=== PATIENT | female | born 1965 | race Caucasian/White ===

== ENCOUNTER → 2016-11-26 | Outpatient (CLI) | payer OTHER ==
[2016-11-26 19:08] LABS: ALT/SGPT 23 U/L (12-78); AST/SGOT 15 U/L (15-37); BLOOD UREA NITROGEN 8 mg/dl (7-18); BUN/CREATININE RATIO 8.9 (10-20); CALCIUM 8.7 mg/dl (8.5-10.1); CARBON DIOXIDE 29 mmol/L (21-32); CHLORIDE 104 mmol/L (98-107); CREATININE 0.95 mg/dl (0.60-1.20); GLUCOSE 110 mg/dl (70-99); POTASSIUM 3.8 mmol/L (3.5-5.1); SODIUM 141 mmol/L (136-145)
== END | disposition home or self-care (01) ==
LOC: C.LABMFLN 08:34
PROVIDERS: ATTEND Internal Medicine
DX: E03.9 Hypothyroidism, unspecified (principal); E78.5 Hyperlipidemia, unspecified; R73.9 Hyperglycemia, unspecified

== ENCOUNTER → 2017-03-10 | Outpatient (CLI) | payer OTHER ==
--- NOTE | 2017-03-11 13:08 | MAMMOGRAPHY REPORT ---
BILATERAL DIGITAL SCREENING MAMMOGRAM TOMOSYNTHESIS WITH CAD: 03/10/2017 CLINICAL HISTORY: Routine screening. TECHNIQUE: Breast tomosynthesis in addition to standard 2D mammography was performed. Current study was also evaluated with a Computer Aided Detection (CAD) system. COMPARISON: Comparison is made to exams dated: 03/17/2013 mammogram, 03/21/2014 mammogram, 10/09/2011 mammogram, 10/08/2010 mammogram - [facility], 12/22/2007, and 10/15/2007. BREAST COMPOSITION: The tissue of both breasts is heterogeneously dense, which may obscure small ma sses. FINDINGS: The parenchyma pattern is similar to prior exams. No new suspicious mass, architectural distortion or cluster of microcalcifications is seen. IMPRESSION: ACR BI-RADS CATEGORY 1: NEGATIVE There is no mammographic evidence of malignancy. A 1 year screening mammogram is recommended. The p atient will receive written notification of the results. Approximately 10% of breast cancers are not detected with mammography. A negative mammographic repor t should not delay biopsy if a clinically suggestive mass is present. Pam Goldstein M.D. ay/:03/10/2017 17:11:42 Application Assistant: Harshil RODRIGES(Raj)(Criselda), [facility] letter sent: Normal 1/2 BI-RADS Code: ACR BI-RADS Category 1: Negative
== END | disposition home or self-care (01) ==
LOC: C.MAMM 13:51
PROVIDERS: ATTEND Obstetrics & Gynecology
DX: Z12.31 Encounter for screening mammogram for malignant neoplasm of breast (principal)

== ENCOUNTER → 2017-06-11 | Outpatient (CLI) | payer OTHER ==
[2017-06-11 13:26] LABS: BLOOD UREA NITROGEN 7 mg/dl (7-18); BUN/CREATININE RATIO 8.5 (10-20); CARBON DIOXIDE 30 mmol/L (21-32); CHLORIDE 107 mmol/L (98-107); CREATININE 0.87 mg/dl (0.60-1.20); GLUCOSE 94 mg/dl (70-99); POTASSIUM 3.7 mmol/L (3.5-5.1); SODIUM 140 mmol/L (136-145)
[2017-06-11 13:27] LABS: ESTIMATED AVERAGE GLUCOSE 108 mg/dl; HA1C FLAG Normal (Normal)
[2017-06-11 13:36] LABS: CHOLESTEROL 209 mg/dl (0-200); CHOLESTEROL/HDL RATIO 3.7; HDL CHOLESTEROL 56 mg/dl; LDL CHOLESTEROL CALCULATED 132 mg/dl; TRIGLYCERIDES 103 mg/dl (0-150); VERY LOW DENSITY LIPOPROT CALC 21 mg/dl
== END | disposition home or self-care (01) ==
LOC: C.LABMFLN 08:14
PROVIDERS: ATTEND Internal Medicine
DX: E03.9 Hypothyroidism, unspecified (principal); R73.9 Hyperglycemia, unspecified; E78.5 Hyperlipidemia, unspecified

== ENCOUNTER → 2017-12-16 | Outpatient (CLI) | payer OTHER ==
[2017-12-16 18:11] LABS: BASO % 0.4 %; BASO ABS # 0.03 K/uL (0-0.2); EOS % 2.5 %; EOS ABS # 0.21 K/uL (0-0.5); HEMATOCRIT 43.4 % (37-47); HEMOGLOBIN 14.4 g/dL (12.0-16.0); IG# 0.01 K/uL (0.00-0.02); LYMPH % 23.3 %; LYMPH ABS # 1.98 K/uL (1.2-3.4); MEAN CELL VOLUME 91.2 fL (80-100); MEAN CORPUSCULAR HEMOGLOBIN 30.3 pg (25-34); MEAN CORPUSCULAR HGB CONC 33.2 g/dl (32-36); MEAN PLATELET VOLUME 10.6 fL (7.4-10.4); MONO % 7.8 %; MONO ABS # 0.66 K/uL (0.11-0.59); NEUT % 65.9 %; PLATELET COUNT 259 K/uL (130-400); RED CELL DISTRIBUTION WIDTH CV 13.3 % (11.5-14.5); RED CELL DISTRIBUTION WIDTH SD 43.9 fL (36.4-46.3); WHITE BLOOD COUNT 8.49 K/uL (4.8-10.8)
== END | disposition home or self-care (01) ==
LOC: C.LABMFLN 15:34
PROVIDERS: ATTEND Internal Medicine
DX: E03.9 Hypothyroidism, unspecified (principal); R63.5 Abnormal weight gain

== ENCOUNTER → 2018-01-29 | Outpatient (CLI) | payer OTHER | END | disposition home or self-care (01) | LOC: C.LAB 16:24 | PROVIDERS: ATTEND Obstetrics & Gynecology | DX: Z00.00 Encounter for general adult medical examination without abnormal findings (principal) ==

== ENCOUNTER 2019-05-10 08:36 | Observation (INO) ==
[2019-05-10] MEDS ORDERED: SODIUM CHLORIDE 0.9% 1000ML 1,000 ML IV SCH (09:00)
[2019-05-10 09:35] LABS: Basophils # (auto) 0.04 K/uL (0-0.2); Basophils % (auto) 0.6 %; Eosinophils # (auto) 0.06 K/uL (0-0.5); Eosinophils % (auto) 0.9 %; Hematocrit (blood only) 43.2 % (37-47); Hemoglobin 14.7 g/dL (12.0-16.0); Immature Granulocytes # (auto) 0.02 K/uL (0.00-0.02); Immature Granulocytes % (auto) 0.3 %; Lymphocytes # (auto) 0.95 K/uL (1.2-3.4); Lymphocytes % (auto) 13.7 %; Mean Corpuscular Volume 91.1 fL (80-100); Mean Platelet Volume 10.6 fL (7.4-10.4); Monocytes # (auto) 0.81 K/uL (0.11-0.59); Monocytes % (auto) 11.7 %; Neutrophils # (auto) 5.03 K/uL (1.4-6.5); Neutrophils % (auto) 72.8 %; Platelet Count 193 K/uL (130-400); RDW Coefficient of Variation 13.7 % (11.5-14.5); RDW Standard Deviation 45.9 fL (36.4-46.3); Red Blood Count 4.74 M/uL (4.2-5.4); White Blood Count 6.91 K/uL (4.8-10.8)
[2019-05-10 09:54] LABS: Albumin Level 4.2 gm/dl (3.4-5.0); BUN Creatinine Ratio 10.7 (10-20); Calcium 8.7 mg/dl (8.5-10.1); Creatinine Clr Calc Pharmacy 54.7 ml/min; Est GFR (African American) 79.8; Est GFR (Non-African American) 68.9; Potassium 3.6 mmol/L (3.5-5.1)
[2019-05-10 09:56] LABS: Albumin Globulin Ratio 1.1 (0.9-2); Bilirubin,Total 0.4 mg/dl (0.2-1); Globulin 3.7 gm/dl (2.5-4.0); Total Protein 7.9 gm/dl (6.4-8.2)
--- NOTE | 2019-05-10 10:11 | Ultrasound Report ---
ABDOMINAL ULTRASOUND, RIGHT UPPER QUADRANT HISTORY: RUQ abd pain. COMPARISON: None. FINDINGS: Pancreas: The pancreas demonstrates a normal echotexture. Liver: Unremarkable. Gallbladder: No gallbladder wall thickening. No gallstones. CBD: 8 mm. Right kidney: No hydronephrosis. IMPRESSION: 1. Dilated common bile duct measuring 8 mm. 2. Normal gallbladder. No gallstones. Electronically signed by: Joseph Allison M.D. 05/10/2019 10:09 AM
[2019-05-10] MEDS ORDERED: IOVERSOL 100ml IV PRN (12:38)
[2019-05-10 12:48] LABS: Appearance Urine Clear (Clear); Bacteria Urine Automated Negative (Negative); Bilirubin Urine Negative (Negative); Blood Urine Trace (Negative); Cast Urine Automated 0 /lpf (0-5); Color Urine Yellow; Glucose Urine UA Negative (Negative); Ketones Urine Negative (Negative); Leukocyte Esterase Urine Negative (Negative); Nitrite Urine Negative (Negative); Protein Urine Negative (Negative); RBC Urine Automated 0-4 /hpf (0-4); Urobilinogen Urine Negative (Negative); pH Urine 5.5 (4.5-7.5)
--- NOTE | 2019-05-10 12:55 | CT Scan Report ---
CT abd pelvis IV con only CT DOSE: 378.25 mGycm HISTORY: Pain. Nausea. epigastric abd pain, bloating, TECHNIQUE: Multiaxial CT images of the abdomen and pelvis were performed following the use of intrave nous contrast. A dose lowering technique was utilized adhering to the principles of ALARA. COMPARISON STUDY: None. FINDINGS: The lung bases are clear. The liver is uniform. There is a 5 mm right hepatic lobe cyst. Spleen and pancreas are unremarkable. Kidneys enhance uniformly. No evidence for hydronephrosis. Bowel pattern is consistent with that of a nonobstructive ileus. The appendix is slightly prominent a t 7.5 mm with a trace amount of periappendiceal change. No evidence for a drainable abscess or collec tion. Bladder is midline. There is no significant abdominal pelvic or inguinal adenopathy. There is no free fluid within the pelvic cul-de-sac. IMPRESSION: 1. This scan is consistent with low-grade acute appendicitis. 2. No evidence for abscess collection or obstruction. 3. Mild nonobstructive small bowel ileus. The above report was generated using voice recognition software. It may contain grammatical, syntax or spelling errors. Electronically signed by: Matthew Dobbins M.D. 05/10/2019 12:53 PM
--- NOTE | 2019-05-10 13:47 | Surgery Consultation ---
Date of Consultation May 10, 2019 Assessment & Plan (1) Acute appendicitis: pt is a 53 year -old female who presents to Er with 3 days history abdominal pain, CT scan- acute appendicitis, IMP: acute appendicitis, Plan: I recommend to do laparoscopic appendectomy, possible open , D/W benefits, risks and alternatives of the surgery, the risks - infection, bleeding, injury Bowel, OR, DVt, stroke, , pt understood, she agrees with the surgery, I answered all questions, History of Present Illness History of Present Illness CC: abdominal pain HPI: pt is a 53 year -old female who presents to ER with 3 days history abdominal pain , bloating with nausea and diarrhea, the pain is located at kallie- umbilical area, pt denies vomiting, no chest pain, pt had CT scan Dx acute appendicitis, Allergies Allergy/AdvReac Type Severity Reaction Status Date / Time No Known Allergies Allergy Unverified 05/10/19 08:57 Home Medications Home Medications Medication Instructions Recorded Confirmed Type hydrocodone-acetaminophen 1 tab PO Q12H PRN 05/10/19 05/10/19 History levothyroxine 88 mcg PO QAM 05/10/19 05/10/19 History zolmitriptan 5 mg PO DIRECTED PRN 05/10/19 05/10/19 History zolpidem 5 - 7.5 mg PO HS PRN 05/10/19 05/10/19 History Patient History Medical History Acute appendicitis (Acute) Diverticulitis Surgical History [facility] Social History Feels Safe at Home: Yes Smoking Status: Former smoker Review of Systems Constitutional: as per Subjective / HPI Ear, Nose, Mouth, Throat: as per Subjective / HPI Respiratory: as per Subjective / HPI Cardiovascular: as per Subjective / HPI Gastrointestinal: as per Subjective / HPI S/P resection rectal polyp, last colonoscopy 2018 Genitourinary: as per Subjective / HPI renal stone Integumentary: as per Subjective / HPI Neurologic: as per Subjective / HPI Psychiatric: as per Subjective / HPI Endocrine: as per Subjective / HPI Hematologic / Lymphatic: as per Subjective / HPI Physical Exam Constitutional: WD/WN, vitals as above well developed and well nourished ENMT: external ear and nose normal, oropharynx normal Neck: trachea midline, no thyromegaly trachea midline Respiratory: normal respiratory effort, lungs clear to auscultation normal respiratory effort Cardiovascular: RRR, no murmur, no edema Rate/Rhythm: regular rate and regular rhythm Heart Sounds: normal S2 Gastrointestinal (Abdomen): normal bowel sounds, soft, nontender, no hepatosplenomegaly soft, slight tenderness at RLQ, no rebound pain, BS + Musculoskeletal: no cyanosis or clubbing, extremities motor strength 5/5 Neurologic: patellar DTR's 2+ bilat, sensation intact Psychiatric: A+Ox3, euthymic affect Orientation: alert and oriented x 3 Results & Data Vital Signs (Past 12 Hours) Vital Signs Temp Pulse Pulse Resp BP BP Pulse Ox 05/10/19 12:00 86 16 126/80 99 05/10/19 10:37 84 16 123/74 99 05/10/19 08:54 99 05/10/19 08:43 36.8 C 98 H 20 143/90 H 100 Laboratory Results Abnormal lab results 05/10/19 05/10/19 05/10/19 Range/Units 09:20 09:20 12:30 MPV 10.6 H (7.4-10.4) fL Lymph # (Auto) 0.95 L (1.2-3.4) K/uL [place] # (Auto) 0.81 H (0.11-0.59) K/uL Glucose 105 H (70-99) mg/dl Urine Blood Trace H (Negative) U Epithel Cells (Auto) 5-10 H (0-5) /lpf CT abd pelvis IV con only CT DOSE: 378.25 mGycm HISTORY: Pain. Nausea. epigastric abd pain, bloating, TECHNIQUE: Multiaxial CT images of the abdomen and pelvis were performed following the use of intravenous contrast. A dose lowering technique was utilized adhering to the principles of ALARA. COMPARISON STUDY: None. FINDINGS: The lung bases are clear. The liver is uniform. There is a 5 mm right hepatic lobe cyst. Spleen and pancreas are unremarkable. Kidneys enhance uniformly. No evidence for hydronephrosis. Bowel pattern is consistent with that of a nonobstructive ileus. The appendix is slightly prominent at 7.5 mm with a trace amount of periappendiceal change. No evidence for a drainable abscess or collection. Bladder is midline. There is no significant abdominal pelvic or inguinal adenopathy. There is no free fluid within the pelvic cul-de-sac. IMPRESSION: 1. This scan is consistent with low-grade acute appendicitis. 2. No evidence for abscess collection or obstruction. 3. Mild nonobstructive small bowel ileus. (1) Acute appendicitis Acute appendicitis type: unspecified acute appendicitis type Qualified Code(s): K35.80 - Unspecified acute appendicitis
--- NOTE | 2019-05-10 13:51 | History & Physical Bridge Note ---
Date of Service May 10, 2019 History & Physical Bridge Note I have examined the patient, reviewed the History & Physical and in the interval since the performance of the History & Physical I have noted the following changes of clinical significance: no changes noted
[2019-05-10] MEDS ORDERED: cefOXitin 2,000 MG in DEXTROSE 5% 50 ML IV ONE (14:00)
[2019-05-10] MEDS ORDERED: LIDOCAINE HCL 2% 2 ML VIAL/AMP(20MG/ML) INFIL ONE (14:02)
[2019-05-10] MEDS ORDERED: fentaNYL citrate 100 MCG/2 ML VIAL ONE ×2 (14:02)
[2019-05-10] MEDS ORDERED: SUCCINYLCHOLINE CHLORIDE 20 MG/ML 10 ML VIAL ONE (14:02)
[2019-05-10] MEDS ORDERED: DEXAMETHASONE SOD INJ 4 MG/ML VIAL ONE (14:02)
[2019-05-10] MEDS ORDERED: MIDAZOLAM HCL 1 MG/ML 2ML VIAL ONE (14:02)
[2019-05-10] MEDS ORDERED: ONDANSETRON INJ 2 MG/ML 2 ML VIAL ONE (14:02)
[2019-05-10] MEDS ORDERED: PROPOFOL IV EMULSION 10 MG/ML 20 ML VIAL IV ONE (14:02)
[2019-05-10] MEDS ORDERED: ROCURONIUM BROMIDE 10 MG/ML 5 ML VIAL ONE (14:02)
[2019-05-10] MEDS ORDERED: ePHEDrine sulfate 50 MG/ML AMP IV PRN (14:13)
[2019-05-10] MEDS ORDERED: ONDANSETRON INJ 2 MG/ML 2 ML VIAL IV PRN ×2 (14:13→15:48)
[2019-05-10] MEDS ORDERED: ATROPINE SULFATE 0.1 MG/ML 10ML SYR IV PRN (14:13)
--- NOTE | 2019-05-10 14:19 | Anesthesiology Consultation ---
Date of Service May 10, 2019 Assessment & Plan (1) Encounter for pre-operative examination: Chart Review Chart Review: Acceptable Risk for Surgery and Patient NOT seen in Pre Admission Testing Consults Requested none History Surgery Operation Date: 05/10/19 14:20 Proposed Procedures p Laparoscopic Appendectomy - Jeff Pérez MD Height/Weight Height: 5 ft Weight: 56.7 kg Allergies Allergy/AdvReac Type Severity Reaction Status Date / Time No Known Allergies Allergy Unverified 05/10/19 08:57 Medications Home Medications Medication Instructions Recorded Confirmed Last Taken hydrocodone-acetaminophen 1 tab PO Q12H PRN 05/10/19 05/10/19 05/06/19 levothyroxine 88 mcg PO QAM 05/10/19 05/10/19 05/10/19 zolmitriptan 5 mg PO DIRECTED PRN 05/10/19 05/10/19 05/09/19 zolpidem 5 - 7.5 mg PO HS PRN 05/10/19 05/10/19 05/09/19 Active Medications Generic Name Dose Route Start Last Admin Trade Name Freq PRN Reason Stop Dose Admin Sodium Chloride 1,000 mls @ 150 mls/hr 05/10/19 09:00 05/10/19 09:41 Nss 1000ml IV 05/10/19 15:39 150 mls/hr .Q6H40M LAUREN Administration Ioversol 94 ml 05/10/19 12:38 05/10/19 12:39 Optiray 320 100ml IV 05/14/19 12:37 94 ml ONCE PRN Administration Interaction Checking Past Medical History Medical History Acute appendicitis (Acute) Diverticulitis Exercise / Class Metabolic Activity II 4-5 Yardwork/Stairs/Walk up hill Past Surgical History Surgical History History of rectal surgery Adenoma vellosa Social History Smoking Status: Former smoker Do You Dip or Chew Tobacco: No Hx Alcohol Use: No Hx Substance Use: No Physical Exam Vital Signs Last Vital Signs Temp 36.8 C 05/10/19 08:43 Pulse 86 05/10/19 12:00 Resp 16 05/10/19 12:00 BP 126/80 05/10/19 12:00 Pulse Ox 99 05/10/19 12:00 Testing Laboratory Results 05/10/19 09:20 05/10/19 09:20 Urine Color Yellow 05/10/19 12:30 Urine Appearance Clear (Clear) 05/10/19 12:30 Urine pH 5.5 (4.5-7.5) 05/10/19 12:30 Ur Specific [place] 1.010 (1.000-1.030) 05/10/19 12:30 Urine Protein Negative (Negative) 05/10/19 12:30 Urine Glucose (UA) Negative (Negative) 05/10/19 12:30 Urine Ketones Negative (Negative) 05/10/19 12:30 Urine Nitrite Negative (Negative) 05/10/19 12:30 Ur Leukocyte Esterase Negative (Negative) 05/10/19 12:30 Urine WBC (Auto) 1-5 /hpf (0-5) 05/10/19 12:30 Urine RBC (Auto) 0-4 /hpf (0-4) 05/10/19 12:30 U Hyaline Cast (Auto) 0 /lpf (0-5) 05/10/19 12:30 U Epithel Cells (Auto) 5-10 /lpf (0-5) H 05/10/19 12:30 Urine Bacteria (Auto) Negative (Negative) 05/10/19 12:30
[2019-05-10] MEDS ORDERED: LIDOCAINE HCL 1% 20 ML VIAL ONE (14:32)
[2019-05-10] MEDS ORDERED: BUPIVACAINE 0.5 % 5 MG/1 ML MPF 30ML VIAL ONE (14:32)
[2019-05-10] MEDS ORDERED: BACITRACIN OINT 15 GM TUBE ONE (14:32)
[2019-05-10] MEDS ORDERED: ACETAMINOPHEN 1000 MG/100 ML IV IV ONE (14:35)
--- NOTE | 2019-05-10 15:32 | Emergency Department Note ---
Entered by Charlotte Villareal acting as a scribe for Precious Fernandez MD History of Present Illness General Chief complaint: Constipation Stated complaint: OBSTRUCTION, BLOATING Source: patient Mode of arrival: ambulatory Limitations: no limitations History of Present Illness Provider complaint: constipation Onset (ago): week(s) 1 Location: abdomen Pain Consistency: + other (episode) Quality: + other (constipation) Relieved By: not by other (tea) Associated symptoms: + loss of appetite and + nausea/vomiting Treatments prior to arrival: other (tea) The patient is a 53 year old female who presents to the ER with complaints of an episode of constipation that began about a week ago. The patient explains that she has been camping and overeating for the past week and believes this could be related. She reports that her last bowel movement was over a week ago. She states that on Friday she developed upper abdominal discomfort. She notes she has been nauseous and experiencing a loss of appetite but denies any vomiting. She reports that she drank a cleansing tea last night and explains usually help but that has caused her to have diarrhea. She denies any urinary symptoms. She also denies any previous abdominal surgeries but explains she does have diverticulitis. Home Medications Home Medications Medication Instructions Recorded Confirmed Type hydrocodone-acetaminophen 1 tab PO Q12H PRN 05/10/19 05/10/19 History levothyroxine 88 mcg PO QAM 05/10/19 05/10/19 History zolmitriptan 5 mg PO DIRECTED PRN 05/10/19 05/10/19 History zolpidem 5 - 7.5 mg PO HS PRN 05/10/19 05/10/19 History Allergies Allergy/AdvReac Type Severity Reaction Status Date / Time No Known Allergies Allergy Unverified 05/10/19 08:57 Past Med/Surg History Medical History Acute appendicitis (Acute) Diverticulitis Surgical History History of rectal surgery Adenoma vellosa Social History Feels Safe at Home: Yes Smoking Status: Former smoker Do You Dip or Chew Tobacco: No Hx Alcohol Use: No Hx Substance Use: No Review of Systems See HPI for pertinent positives & negatives. and A total of 10 systems reviewed and were otherwise negative Physical Exam Vital Signs Vital Signs - 24 hr 05/10/19 08:43 05/10/19 08:54 05/10/19 10:37 Temperature 36.8 C Temperature Source Oral Sepsis Recent Fever Within 48 Hours No Sepsis Action Taken by Nursing No Action Required Pulse Rate 98 H Pulse Rate [Apical] 84 Pulse Rate [Finger] Pulse Rhythm [Finger] Pulse Strength [Finger] Respiratory Rate 20 16 Respiratory Effort / Characteristics Non-Labored Respiratory Depth Normal Respiratory Pattern Blood Pressure 143/90 H Blood Pressure [Left Arm] 123/74 Blood Pressure Mean 107 Blood Pressure Mean [Left Arm] 90 Blood Pressure Position [Left Arm] Pulse Oximetry 100 99 99 Oxygen Delivery Method Room Air Room Air Room Air 05/10/19 12:00 05/10/19 14:12 Temperature 36.8 C Temperature Source Oral Sepsis Recent Fever Within 48 Hours Sepsis Action Taken by Nursing Pulse Rate Pulse Rate [Apical] 86 Pulse Rate [Finger] 84 Pulse Rhythm [Finger] Regular Pulse Strength [Finger] Normal Respiratory Rate 16 18 Respiratory Effort / Characteristics Non-Labored Spontaneous Respiratory Depth Normal Respiratory Pattern Regular Blood Pressure Blood Pressure [Left Arm] 126/80 142/87 H Blood Pressure Mean Blood Pressure Mean [Left Arm] 95 105 Blood Pressure Position [Left Arm] Sitting Pulse Oximetry 99 98 Oxygen Delivery Method Room Air Room Air Vital signs reviewed. General: Well-appearing, in no significant distress. HEENT: No scleral icterus, PERRLA, neck supple. Atraumatic. Cardiovascular: Regular rate and rhythm, no extra sounds. Pulmonary: Clear to auscultation bilaterally, normal work of breathing. Abdomen: Soft, positive bowel sounds. Mild abdominal distention/lower abdominal tenderness. No rebound or guarding. Musculoskeletal: Atraumatic, no peripheral edema. Neurologic: Patient awake alert and oriented x 3. Skin: Warm, dry, no rash Course 0850: Past medical records reviewed. The patient was evaluated in room A3. A complete history and physical examination was performed. 1311: I discussed the patients case with Dr. Pérez General Surgery. He will evaluate the patient for further management. 1315: I updated the patient. Administered Medications Ioversol (Optiray 320 100ml) 94 ml IV ONCE PRN PRN Reason: Interaction Checking Stop: 05/14/19 12:37 Last Admin: 05/10/19 12:39 Dose: 94 ml Documented by: [id number] Discontinued Medications Bacitracin (Bacitracin) Confirm Administered Dose 45 appln .ROUTE .STK-MED ONE Stop: 05/10/19 14:33 Last Admin: 05/10/19 15:40 Dose: 45 appln Documented by: [id number] Bupivacaine HCl (Marcaine 0.5% Mpf) Confirm Administered Dose 30 ml .ROUTE .STK- MED ONE Stop: 05/10/19 14:33 Last Admin: 05/10/19 15:40 Dose: 18 ml Documented by: [id number] Sodium Chloride (Nss 1000ml) 1,000 mls @ 150 mls/hr IV .Q6H40M LAUREN Stop: 05/10/19 15:39 Last Admin: 05/10/19 09:41 Dose: 150 mls/hr Documented by: [id number] Cefoxitin Sodium 2,000 mg/ (Dextrose) 60 mls @ 100 mls/hr IV NOW ONE Stop: 05/10/19 14:35 Last Admin: 05/10/19 14:41 Dose: 100 mls/hr Documented by: [id number] Lidocaine HCl (Xylocaine 1% (Local)) Confirm Administered Dose 20 ml .ROUTE .ST-MED ONE Stop: 05/10/19 14:33 Last Admin: 05/10/19 15:41 Dose: 18 ml Documented by: [id number] Medical Decision Making Differential Diagnosis Differential diagnosis includes: gastritis, peptic ulcer disease, GERD, gallbladder disease, pancreatitis, small bowel obstruction, acute coronary syndrome, pericarditis, ischemic bowel, irritable bowel disease, irritable bowel syndrome, appendicitis, diverticulitis, malignancy, hernia, urinary tract infection, torsion, perforation, trauma, and infectious. Medical Records Attestation: I reviewed the patient's medical records. Home Medications Current Medication List: was personally reviewed by me Laboratory Data Attestation: I reviewed the patient's lab results. Result diagrams: 05/10/19 09:20 05/10/19 09:20 Lab Results 05/10/19 05/10/19 05/10/19 Range/Units 09:20 09:20 12:30 WBC 6.91 (4.8-10.8) K/uL RBC 4.74 (4.2-5.4) M/uL Hgb 14.7 (12.0-16.0) g/dL Hct 43.2 (37-47) % MCV 91.1 (80-100) fL MCH 31.0 (25-34) pg MCHC 34.0 (32-36) g/dL RDW Std Deviation 45.9 (36.4-46.3) fL RDW Coeff of Jairon 13.7 (11.5-14.5) % Plt Count 193 (130-400) K/uL MPV 10.6 H (7.4-10.4) fL Immature Gran % (Auto) 0.3 % Neut % (Auto) 72.8 % Lymph % (Auto) 13.7 % [place] % (Auto) 11.7 % Eos % (Auto) 0.9 % Baso % (Auto) 0.6 % Immature Gran # (Auto) 0.02 (0.00-0.02) K/uL Neut # (Auto) 5.03 (1.4-6.5) K/uL Lymph # (Auto) 0.95 L (1.2-3.4) K/uL [place] # (Auto) 0.81 H (0.11-0.59) K/uL Eos # (Auto) 0.06 (0-0.5) K/uL Baso # (Auto) 0.04 (0-0.2) K/uL Sodium 136 (136-145) mmol/L Potassium 3.6 (3.5-5.1) mmol/L Chloride 103 (98-107) mmol/L Carbon Dioxide 29 (21-32) mmol/L Anion Gap 4.0 (3-11) BUN 10 (7-18) mg/dl Creatinine 0.95 (0.6-1.2) mg/dl Est Cr Clr Drug Dosing 54.7 ml/min Est GFR ( Amer) 79.8 Est GFR (Non-Af Amer) 68.9 BUN/Creatinine Ratio 10.7 (10-20) Glucose 105 H (70-99) mg/dl Calcium 8.7 (8.5-10.1) mg/dl Total Bilirubin 0.4 (0.2-1) mg/dl AST 20 (15-37) U/L ALT 19 (12-78) U/L Alkaline Phosphatase 86 (45-117) U/L Total Protein 7.9 (6.4-8.2) gm/dl Albumin 4.2 (3.4-5.0) gm/dl Globulin 3.7 (2.5-4.0) gm/dl Albumin/Globulin Ratio 1.1 (0.9-2) Lipase 86 (73-393) U/L Urine Color Yellow Urine Appearance Clear (Clear) Urine pH 5.5 (4.5-7.5) Ur Specific [place] 1.010 (1.000-1.030) Urine Protein Negative (Negative) Urine Glucose (UA) Negative (Negative) Urine Ketones Negative (Negative) Urine Blood Trace H (Negative) Urine Nitrite Negative (Negative) Urine Bilirubin Negative (Negative) Urine Urobilinogen Negative (Negative) Ur Leukocyte Esterase Negative (Negative) Urine WBC (Auto) 1-5 (0-5) /hpf Urine RBC (Auto) 0-4 (0-4) /hpf U Hyaline Cast (Auto) 0 (0-5) /lpf U Epithel Cells (Auto) 5-10 H (0-5) /lpf Urine Bacteria (Auto) Negative (Negative) Imaging Data Radiologist's Impression: Radiology results as stated below per my review and t he radiologist's interpretation: ABDOMINAL ULTRASOUND, RIGHT UPPER QUADRANT HISTORY: RUQ abd pain. COMPARISON: None. FINDINGS: Pancreas: The pancreas demonstrates a normal echotexture. Liver: Unremarkable. Gallbladder: No gallbladder wall thickening. No gallstones. CBD: 8 mm. Right kidney: No hydronephrosis. IMPRESSION: 1. Dilated common bile duct measuring 8 mm. 2. Normal gallbladder. No gallstones. Electronically signed by: Joseph Allison M.D. 05/10/2019 10:[address] abd pelvis IV con only CT DOSE: 378.25 mGycm HISTORY: Pain. Nausea. epigastric abd pain, bloating, TECHNIQUE: Multiaxial CT images of the abdomen and pelvis were performed following the use of intravenous contrast. A dose lowering technique was utilized adhering to the principles of ALARA. COMPARISON STUDY: None. FINDINGS: The lung bases are clear. The liver is uniform. There is a 5 mm right hepatic lobe cyst. Spleen and pancreas are unremarkable. Kidneys enhance uniformly. No evidence for hydronephrosis. Bowel pattern is consistent with that of a nonobstructive ileus. The appendix is slightly prominent at 7.5 mm with a trace amount of periappendiceal change. No evidence for a drainable abscess or collection. Bladder is midline. There is no significant abdominal pelvic or inguinal adenopathy. There is no free fluid within the pelvic cul-de-sac. IMPRESSION: 1. This scan is consistent with low-grade acute appendicitis. 2. No evidence for abscess collection or obstruction. 3. Mild nonobstructive small bowel ileus. The above report was generated using voice recognition software. It may contain grammatical, syntax or spelling errors. Electronically signed by: Matthew Dobbins M.D. 05/10/2019 12:53 PM Blood Pressure Blood Pressure Findings: Normal blood pressure Blood Pressure Disposition: did not require urgent referral MDM Narrative This patient was evaluated and appeared to be in no significant distress. IV access was obtained and laboratory work was drawn. Patient was placed on the groundwater monitoring technician. IV fluids were initiated. Patient declined the need for any pain or nausea medications. Laboratory work reveals a normal WBC. Ultrasound the right upper quadrant is significant for a slightly dilated common bile duct but no evidence of acute cholecystitis or gallstone. CT imaging reveals a mild appendicitis. Case was discussed with Dr. Pérez of general surgery. He agreed to evaluate the patient in the ED for further management. Patient was made aw are of the findings and plan and agrees. Impression & Plan Acute appendicitis Discharge Plan Visit Data *Final* Discharge Date/Time: 05/10/19 14:20 Chief Complaint: Constipation Stated Complaint: OBSTRUCTION, BLOATING ED Provider: Precious Fernandez Discharge Problem: Acute appendicitis Patient Disposition: Still a Patient Discharge Instructions Interventions: ED Discharge Assessment Last Done: 05/10/19 13:55 Discharge Problem: Acute appendicitis Qualifiers: Acute appendicitis type: unspecified acute appendicitis type Qualified Code(s): K35.80 - Unspecified acute appendicitis The scribe's documentation has been prepared under my direction and personally reviewed by me in its entirety. I confirm that the note above accurately reflects all work, treatment, procedures, and medical decision making performed by me.
[2019-05-10] MEDS ORDERED: NEOSTIGMINE METHYLSULFATE 5 MG/5 ML SYR ONE (15:34)
[2019-05-10] MEDS ORDERED: GLYCOPYRROLATE 0.2 MG/ML VIAL ONE (15:34)
[2019-05-10] MEDS ORDERED: KETOROLAC 30 MG/ML VIAL ONE (15:34)
--- NOTE | 2019-05-10 15:44 | Post Operative Brief Note ---
Immediate Post Op Note v1 Date of Surgery May 10, 2019 Pre & Post Diagnosis Operation Date: 05/10/19 14:20 Pre-Op Diagnosis: Acute appendicitis. Post-Op Diagnosis: Acute appendicitis. Procedure Operation Date: 05/10/19 14:20 Actual Procedures p Laparoscopic Appendectomy(Not Applicable) - Jeff Pérez MD Surgeon Jeff Pérez MD Sign Language Teacher engineering technician Estimated Blood Loss 10 Findings Consistent with Post-Op Diagnosis acute appendicitis Fluids 800ml Specimens appendix Drains Sharpe Catheter Anesthesia Type General Complications none Disposition Accompanied Patient To Recovery: Yes Disposition: Recovery Room Overlapping Procedure I was immediately available: during the entire case.
[2019-05-10] MEDS ORDERED: OXYCODONE/ACETAMINOPHEN 5mg/325mg TAB PO PRN (15:50)
[2019-05-10] MEDS: fentaNYL citrate 100 MCG/2 ML VIAL IV PRN ×4 (16:12→16:32)
--- NOTE | 2019-05-10 16:13 | Anesthesiology Progress Note ---
Date of Service May 10, 2019 Anesthesia Post Procedure Vital Signs Vital Signs: Temp Pulse Pulse Pulse Resp BP BP 05/10/19 16:00 80 13 136/78 05/10/19 15:52 36.5 C 91 H 18 142/95 H 05/10/19 14:12 36.8 C 84 18 142/87 H 05/10/19 12:00 86 16 126/80 05/10/19 10:37 84 16 123/74 05/10/19 08:54 05/10/19 08:43 36.8 C 98 H 20 143/90 H Pulse Ox 05/10/19 16:00 99 05/10/19 15:52 98 05/10/19 14:12 98 05/10/19 12:00 99 05/10/19 10:37 99 05/10/19 08:54 99 05/10/19 08:43 100 Pain Intensity Medial Abdomen: Pain Intensity: 0 Transfer of Care Handoff Completed per policy Notes Mental Status: alert / awake / arousable and participated in evaluation Patient Amnestic to Procedure: Yes Nausea / Vomiting: adequately controlled Pain: adequately controlled Airway Patency, RR, SpO2: stable & adequate BP & HR: stable & adequate Hydration State: stable & adequate Anesthetic Complications: no major complications apparent and Pt Satisfied with anesthetic care
[2019-05-10] MEDS: HYDROmorphone INJ 1 MG/ML SYRINGE IV PRN ×5 (16:41→17:14)
[2019-05-10] MEDS ORDERED: ZOLPIDEM TARTRATE 5 MG TAB PO PRN (17:44)
[2019-05-10] MEDS ORDERED: HYDROCODONE/ACETAMOPHEN 5/325MG TAB PO PRN (17:44)
[2019-05-10] MEDS: HYDROmorphone INJ 0.5 MG/0.5 ML SYR IV PRN ×2 (18:02→21:16)
[2019-05-10] MEDS: LACTATED RINGER'S 1,000 ML IV SCH (18:27)
--- NOTE | 2019-05-11 01:55 | Operative Report ---
DATE OF OPERATION: 05/10/2019 PREOPERATIVE DIAGNOSIS: Acute appendicitis. POSTOPERATIVE DIAGNOSIS: Acute appendicitis. PROCEDURE: Laparoscopic appendectomy. SURGEON: Jeff Pérez MD. ANESTHESIA: General. ESTIMATED BLOOD LOSS: About 10 mL. FINDINGS: Acute appendicitis. COMPLICATIONS: None. INDICATIONS FOR THE PROCEDURE: This is a 53-year-old female who presented to ED with 3 days history of abdominal pain. The patient had a CT scan diagnosis of acute appendicitis. I recommended to do laparoscopic appendectomy, possible open. I did talk to the patient about the benefit and risk, alternative of procedure. I indicated the risks may include but not limited such as bleeding, infection, injury to the bowel, myocardial infarction, DVT, even . The patient understands. She signed informed consent and I answered all questions. DETAILS OF PROCEDURE: We brought the patient to the OR, put the patient in the supine position. The patient received SCD on bilateral legs to prevent DVT. Also, the patient received 2 g cefoxitin IV for prophylactic antibiotic. The patient received general anesthesia without difficulty. Also, patient received Sharpe catheter insertion. The patient's abdomen was prepped and draped in routine sterile fashion. After time out, I injected local anesthesia by using 1% lidocaine mixed with 0.5% Marcaine just above umbilicus, then I made a small incision just above umbilicus, opened fascia and opened peritoneum under direct vision, put a Roslyn trocar in, connected to CO2 to create pneumoperitoneum. Flow rate at 6 liter per minute. Pressure not more than 14 mmHg. Once we got a nice pneumoperitoneum, we put the camera in, looked around the abdomen that showed normal finding on the small bowel, large bowel, appendix showed it was enlarged, contrast confirmed diagnosis of acute appendicitis. Then, we put another two 5 mm trocar on the left lower quadrant and then we used a harmonic to take down appendix, rechecked, no active bleeding. Then, we used a 45 mm Endo-ANGELINA stapler, transection on the base of the appendix, rechecked the staple line intact. No leak and no active bleeding. Then we removed the appendix through the catch bag then we reinserted Roslyn trocar in, connected to CO2 to create pneumoperitoneum again looked around the abdomen. The staple line intact. No active bleeding, no leak. Then we removed all trocar under direct vision. No active bleeding from the trocar sites. Pneumoperitoneum was reduced. I closed the umbilical incision, fascial layer by using #1 Vicryl [id number] x2, closed subcutaneous layer by using 2-0 Vicryl interrupted and closed skin by using 4-0 Vicryl continuous running, closed another two 5 mm trocar sites skin only by using 4-0 Vicryl. Then we put the dressing on. The patient tolerated the procedure well. All instrument, needle and sponge count correct x2 at the end of case. The patient transferred to recovery room in stable condition. The appendix specimen sent to pathology. After procedure, I did talk to the patient's about the OR finding and procedure we did and he understands. I attest to the content of the Intraoperative Record and any orders documented therein. Any exception s are noted below.
[2019-05-11] MEDS: LACTATED RINGER'S 1,000 ML IV SCH (06:09)
[2019-05-11] MEDS ORDERED: LEVOTHYROXINE SODIUM 88 MCG TABLET PO SCH (06:30)
[2019-05-11 07:26] LABS: Basophils # (auto) 0.01 K/uL (0-0.2); Basophils % (auto) 0.2 %; Hematocrit (blood only) 35.1 % (37-47); Hemoglobin 11.9 g/dL (12.0-16.0); Immature Granulocytes # (auto) 0.01 K/uL (0.00-0.02); Immature Granulocytes % (auto) 0.2 %; Lymphocytes # (auto) 0.86 K/uL (1.2-3.4); Lymphocytes % (auto) 15.1 %; Mean Corpuscular Hgb Conc 33.9 g/dL (32-36); Mean Corpuscular Volume 88.4 fL (80-100); Mean Platelet Volume 10.8 fL (7.4-10.4); Monocytes # (auto) 0.53 K/uL (0.11-0.59); Monocytes % (auto) 9.3 %; Neutrophils # (auto) 4.28 K/uL (1.4-6.5); Neutrophils % (auto) 75.2 %; Platelet Count 209 K/uL (130-400); RDW Coefficient of Variation 13.4 % (11.5-14.5); RDW Standard Deviation 43.5 fL (36.4-46.3); Red Blood Count 3.97 M/uL (4.2-5.4); White Blood Count 5.69 K/uL (4.8-10.8)
--- NOTE | 2019-05-11 07:41 | Anesthesiology Progress Note ---
Date of Service May 11, 2019 Anesthesia Post Procedure Vital Signs Vital Signs: Temp Pulse Pulse Pulse Pulse Resp BP 05/11/19 07:09 36.9 C 67 19 05/11/19 03:30 36.7 C 73 14 05/10/19 23:35 36.7 C 72 14 05/10/19 20:42 36.4 C L 84 17 05/10/19 19:43 36.9 C 71 17 05/10/19 18:39 36.4 C L 69 16 05/10/19 18:05 36.4 C L 77 17 05/10/19 17:35 37.0 C 77 16 05/10/19 17:30 36.8 C 74 15 05/10/19 17:20 72 15 05/10/19 17:10 76 15 05/10/19 17:00 37.0 C 72 13 05/10/19 16:50 71 15 05/10/19 16:40 75 15 05/10/19 16:30 78 17 05/10/19 16:20 77 15 05/10/19 16:10 79 16 05/10/19 16:00 80 13 05/10/19 15:52 36.5 C 91 H 18 05/10/19 14:12 36.8 C 84 18 05/10/19 12:00 86 16 05/10/19 10:37 84 16 05/10/19 08:54 05/10/19 08:43 36.8 C 98 H 20 143/90 H BP BP Pulse Ox 05/11/19 07:09 129/79 99 05/11/19 03:30 94/54 L 96 05/10/19 23:35 110/63 97 05/10/19 20:42 111/75 95 05/10/19 19:43 121/77 96 05/10/19 18:39 118/77 100 05/10/19 18:05 129/91 99 05/10/19 17:35 138/86 99 05/10/19 17:30 128/71 100 05/10/19 17:20 124/86 100 05/10/19 17:10 132/69 100 05/10/19 17:00 134/84 100 05/10/19 16:50 132/76 100 05/10/19 16:40 138/83 99 05/10/19 16:30 126/74 100 05/10/19 16:20 142/82 H 100 05/10/19 16:10 119/81 99 05/10/19 16:00 136/78 99 05/10/19 15:52 142/95 H 98 05/10/19 14:12 142/87 H 98 05/10/19 12:00 126/80 99 05/10/19 10:37 123/74 99 05/10/19 08:54 99 05/10/19 08:43 100 Pain Intensity Medial Abdomen: Pain Intensity: 2 Notes Mental Status: alert / awake / arousable and participated in evaluation Nausea / Vomiting: adequately controlled Pain: adequately controlled Airway Patency, RR, SpO2: stable & adequate BP & HR: stable & adequate Hydration State: stable & adequate Anesthetic Complications: Pt Satisfied with anesthetic care
[2019-05-11] MEDS ORDERED: POLYETHYLENE (MIRALAX) 17 GM PACK PO ONE (11:23)
--- NOTE | 2019-05-12 00:53 | Discharge Summary ---
ADMITTING DIAGNOSIS: Acute appendicitis. POSTOPERATIVE DIAGNOSIS: Acute appendicitis. OPERATION: Laparoscopic appendectomy. SURGEON: Jeff Pérez MD DETAILS OF DISCHARGE SUMMARY: This is a A 53-year-old female who presented to ED with 1-day history of abdominal pain. The patient had a CT scan diagnosis of acute appendicitis, and we took the patient to the OR. We did a laparoscopic appendectomy. The patient tolerated the procedure well. After the procedure, the patient was transferred to regular surgical floor room. The patient is doing fine. She tolerated the diet. No significant abdominal pain, no nausea, no vomiting, and no temperature, and the patient wanted to go home today. PHYSICAL EXAMINATION: VITAL SIGNS: Temperature is 36.6, respiratory rate 14, the heart rate 67, blood pressure 113/74, O2 saturation 99% on room air. GENERAL: The patient is alert, awake, oriented x3. HEENT: With normal limitation. NEUROLOGIC: Examination Intact. NECK: No JVD. CHEST: Bilateral lung sounds clear. HEART: Normal S1, S2. No murmur. ABDOMEN: Soft, no tenderness. Bowel sounds positive. All incisions intact. No redness and no discharge. EXTREMITIES: No edema. PLAN: The patient wanted to go home. Gave patient the postop care instructions, the patient understands. I answered all questions. I will follow up the patient in 1-2 weeks.
== END 2019-05-11 16:03 | disposition home or self-care (01) ==
LOC: ED 08:36 → ASU 14:20 → 3W 14:20